=== PATIENT | male | born 2005 | race Caucasian/White ===

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

== ENCOUNTER → 2024-03-27 | Outpatient (CLI) | payer BC, MEDICAID ==
[~2024-03-27] MED LIST changes: +LITH45TASA PO; +METH1TAB13 PO; +OLAN15TA13; +STEL90IN SC; +ZYPR10TA PO
[2024-03-27 14:01] LABS: BASO % 0.5 % (0.0-1.0); EOS # 0.2 10^3/uL (0.0-0.5); EOS % 2.9 % (0.0-3.0); HEMATOCRIT 46.2 % (42.0-52.0); HEMOGLOBIN 15.6 g/dl (13.5-17.5); LYMPH # 1.7 10^3/uL (1.5-5.0); LYMPH % 27.4 % (24.0-44.0); MEAN CORPUSCULAR HEMOGLOBIN 30.9 pg (27.0-33.0); MEAN CORPUSCULAR HGB CONC 33.8 g/dl (32.0-36.5); MEAN CORPUSCULAR VOLUME 91.5 fl (80.0-96.0); MONO # 0.4 10^3/uL (0.0-0.8); MONO % 5.5 % (2.0-8.0); NEUTROPHILS % 63.5 % (36.0-66.0); PLATELET COUNT, AUTOMATED 195 10^3/uL (150-450); RED BLOOD COUNT 5.05 10^6/uL (4.30-6.10); WHITE BLOOD COUNT 6.3 10^3/uL (4.0-10.0)
[2024-03-27 14:26] LABS: ALBUMIN 4.3 G/DL (3.2-5.2); ALKALINE PHOSPHATASE 132 U/L (46-116); ALT/SGPT 23 U/L (7.0-40); AST/SGOT 17 U/L (<34); BILIRUBIN,TOTAL 2.9 MG/DL (0.3-1.2); BLOOD UREA NITROGEN 15 MG/DL (9-23); CALCIUM LEVEL 9.5 MG/DL (8.5-10.1); CARBON DIOXIDE LEVEL 33 MMOL/L (20-31); CHLORIDE LEVEL 107 MMOL/L (98-107); CREATININE FOR GFR 0.84 MG/DL (0.70-1.30); GLUCOSE, FASTING 90 MG/DL (60-100); POTASSIUM SERUM 3.7 MMOL/L (3.5-5.1); SODIUM LEVEL 143 MMOL/L (136-145); TOTAL PROTEIN 6.8 G/DL (5.7-8.2)
[2024-03-27 14:33] LABS: HEPATITIS B SURFACE ANTIBODY NEGATIVE (POSITIVE)
[2024-03-27 14:59] LABS: HIV 1&2 SCREEN NEGATIVE (NEGATIVE)
[2024-03-27 15:07] LABS: HEPATITIS C VIRUS ABY INDEX < 0.02 INDEX (<0.8)
[2024-03-31 12:41] LABS: QuantiFERON-TB Gold Plus NEGATIVE (NEGATIVE)
== END ==
LOC: M PLALAB 12:41 → M LAB 12:41
PROVIDERS: ATTEND Nurse Practitioner Family
DX: L40.0 Psoriasis vulgaris (principal); Z51.81 Encounter for therapeutic drug level monitoring; Z79.899 Other long term (current) drug therapy

== ENCOUNTER 2024-05-05 18:02 | Emergency (ER) | payer BC, MEDICAID ==
[~2024-05-05] VITALS: Ht 180.3 cm; Wt 68.5 kg
[2024-05-05 18:05] VITALS: BP 119/73; O2SAT 98
[2024-05-05] MEDS ORDERED: HOME MED LIST COMPLETE! XX SCH (20:30)
[2024-05-05 21:16] VITALS: TEMP 97.9
== END 2024-05-05 23:56 | disposition home or self-care (01) ==
LOC: M ED 18:02
DX: F84.0 Autistic disorder (principal); Z88.8 Allergy status to other drugs, medicaments and biological substances; Z79.899 Other long term (current) drug therapy

== ENCOUNTER → 2024-06-03 | Outpatient (CLI) | payer BC, MEDICAID ==
[~2024-06-03] MED LIST changes: +LITH450T11 PO; -LITH45TASA PO; -OLAN15TA13; +OLAN15TA69
[2024-06-03 08:43] LABS: BASO % 0.5 % (0.0-1.0); EOS # 0.2 10^3/uL (0.0-0.5); EOS % 3.5 % (0.0-3.0); HEMOGLOBIN 15.8 g/dl (13.5-17.5); LYMPH # 1.9 10^3/uL (1.5-5.0); LYMPH % 29.4 % (24.0-44.0); MEAN CORPUSCULAR HEMOGLOBIN 31.2 pg (27.0-33.0); MEAN CORPUSCULAR HGB CONC 33.6 g/dl (32.0-36.5); MEAN CORPUSCULAR VOLUME 92.7 fl (80.0-96.0); MONO # 0.5 10^3/uL (0.0-0.8); MONO % 7.9 % (2.0-8.0); NEUTROPHILS # 3.9 10^3/uL (1.5-8.5); NEUTROPHILS % 58.2 % (36.0-66.0); PLATELET COUNT, AUTOMATED 225 10^3/uL (150-450); RED BLOOD COUNT 5.07 10^6/uL (4.30-6.10); WHITE BLOOD COUNT 6.6 10^3/uL (4.0-10.0)
[2024-06-03 08:50] LABS: HEMOGLOBIN A1c 4.7 % (4.0-6.0)
[2024-06-03 09:15] LABS: THYROID STIMULATING HORMONE 1.053 uIU/ML (0.48-4.17)
[2024-06-03 09:17] LABS: LITHIUM LEVEL 0.65 MMOL/L (1.0-1.20)
[2024-06-03 09:19] LABS: ALBUMIN 4.1 G/DL (3.2-5.2); ALKALINE PHOSPHATASE 128 U/L (46-116); ALT/SGPT 23 U/L (7.0-40); AST/SGOT 24 U/L (<34); BILIRUBIN,TOTAL 0.8 MG/DL (0.3-1.2); BLOOD UREA NITROGEN 18 MG/DL (9-23); CALCIUM LEVEL 9.9 MG/DL (8.5-10.1); CARBON DIOXIDE LEVEL 30 MMOL/L (20-31); CHLORIDE LEVEL 108 MMOL/L (98-107); CHOLESTEROL LEVEL 167 MG/DL (<200); CHOLESTEROL RISK RATIO 5.62 (<5); CREATININE FOR GFR 0.84 MG/DL (0.70-1.30); GLUCOSE, FASTING 86 MG/DL (60-100); HDL CHOLESTEROL 29.7 MG/DL (>40); NON-HDL-C 137.3 MG/DL; POTASSIUM SERUM 4.4 MMOL/L (3.5-5.1); SODIUM LEVEL 143 MMOL/L (136-145); TOTAL PROTEIN 6.9 G/DL (5.7-8.2); TRIGLYCERIDES LEVEL 666 MG/DL (<150)
== END ==
LOC: M LAB 07:47
PROVIDERS: ATTEND Nurse Practitioner Psychiatric/Mental Health
DX: F84.9 Pervasive developmental disorder, unspecified (principal)

== ENCOUNTER 2024-08-10 22:11 | Inpatient (IN) | payer BC, MEDICAID ==
[~2024-08-10] VITALS: Ht 180.3 cm; Wt 70.1 kg
[2024-08-10 23:03] LABS: HEMATOCRIT 45.6 % (42.0-52.0); HEMOGLOBIN 15.4 g/dl (13.5-17.5); MEAN CORPUSCULAR HGB CONC 33.8 g/dl (32.0-36.5); MEAN CORPUSCULAR VOLUME 91.9 fl (80.0-96.0); PLATELET COUNT, AUTOMATED 225 10^3/uL (150-450); RED BLOOD COUNT 4.96 10^6/uL (4.30-6.10)
[2024-08-10 23:24] LABS: ETHYL ALCOHOL (ETHANOL) < 0.003 % (0.000-0.010)
[2024-08-10 23:25] LABS: SALICYLATE LEVEL < 3.0 MG/DL (<30)
[2024-08-10 23:26] LABS: ALBUMIN 4.3 G/DL (3.2-5.2); ALKALINE PHOSPHATASE 124 U/L (40-129); ALT/SGPT 20 U/L (7.0-40); AST/SGOT 18 U/L (<34); BILIRUBIN,DIRECT 0.4 MG/DL (<0.4); BLOOD UREA NITROGEN 14 MG/DL (9-23); CALCIUM LEVEL 9.9 MG/DL (8.5-10.1); CARBON DIOXIDE LEVEL 28 MMOL/L (20-31); CHLORIDE LEVEL 108 MMOL/L (98-107); CREATININE FOR GFR 0.85 MG/DL (0.70-1.30); GLUCOSE, FASTING 111 MG/DL (60-100); SODIUM LEVEL 144 MMOL/L (136-145); TOTAL PROTEIN 6.8 G/DL (5.7-8.2)
[2024-08-11] MEDS: OLANZapine INTRAMUSCULAR 10MG VIAL IM ONE (00:05)
[2024-08-11] MEDS: LORazepam 2 MG/ML 1ML VIAL IM ONE (00:05)
[2024-08-11] MEDS: diphenhydrAMINE 50MG/ML VIAL IM ONE (00:05)
[2024-08-11 00:42] LABS: AMPHETAMINES LEVEL URINE NEGATIVE (NEGATIVE); BARBITURATES URINE NEGATIVE (NEGATIVE); BENZODIAZEPINES URINE NEGATIVE (NEGATIVE); CANNABINOIDS URINE NEGATIVE (NEGATIVE); COCAINE METABOLITE URINE NEGATIVE (NEGATIVE); METHADONE URINE NEGATIVE (NEGATIVE); OPIATES URINE NEGATIVE (NEGATIVE); PHENCYCLIDINE URINE NEGATIVE (NEGATIVE)
[2024-08-11] MEDS ORDERED: IBUPROFEN 400MG TAB PO PRN (14:40)
[2024-08-11] MEDS ORDERED: ACETAMINOPHEN 325 MG TAB PO PRN (14:40)
[2024-08-11] MEDS ORDERED: MAALOX 30 ML SUSP *UDC PO PRN (14:40)
[2024-08-11] MEDS ORDERED: MOM 30ML SUSPENSION UDC PO PRN (14:40)
[2024-08-11] MEDS ORDERED: traZODone 50 MG TAB PO PRN (14:40)
[2024-08-11] MEDS ORDERED: LITH450T11 PO (15:57)
[2024-08-11] MEDS ORDERED: GUAN1TAB17 PO (16:00)
[2024-08-11] MEDS ORDERED: LURA20TA PO (16:00)
[2024-08-11] MEDS ORDERED: HOME MED LIST COMPLETE! XX SCH (16:05)
[2024-08-11] MEDS: LITHIUM CARBONATE 300 MG CAP PO ONE (17:09)
[2024-08-11 18:02] VITALS: BP 121/56; TEMP 97.8; O2SAT 100
[2024-08-12 06:41] VITALS: BP 123/63; TEMP 98.3; O2SAT 95
[2024-08-12] MEDS: LORazepam 1 MG TAB PO ONE (09:55)
[2024-08-12] MEDS: diphenhydrAMINE 50MG CAP PO ONE (10:00)
[2024-08-12] MEDS: OLANZapine INTRAMUSCULAR 10MG VIAL IM ONE (10:15)
[2024-08-12] MEDS: diphenhydrAMINE 50MG/ML VIAL IM STA (10:16)
[2024-08-12] MEDS: LORazepam 2 MG/ML 1ML VIAL IM STA (10:16)
[2024-08-12] MEDS: OLANZapine INTRAMUSCULAR 10MG VIAL IM STA (10:21)
[2024-08-12] MEDS: chlorproMAZINE INJ 50MG/2ML AMP IM ONE (11:03)
[2024-08-12 12:21] VITALS: BP 114/61; TEMP 97.4; O2SAT 96
[2024-08-12] MEDS: LURASIDONE 20 MG TAB (LATUDA) PO SCH (12:34)
[2024-08-12] MEDS: LITHIUM CARBONATE 450 MG **CR** TAB PO SCH (12:35)
[2024-08-12 14:50] VITALS: BP 121/66; TEMP 97.3; O2SAT 97
[2024-08-13] MEDS: LITHIUM CARBONATE 450 MG **CR** TAB PO SCH (05:19)
[2024-08-13 15:50] VITALS: BP 142/70; TEMP 98.2; O2SAT 98
[2024-08-13] MEDS: diphenhydrAMINE 25MG CAP PO PRN (20:33)
[2024-08-13] MEDS: OLANZapine ORAL DISINTEGRATING TAB 5MG PO PRN (20:33)
[2024-08-14] MEDS: OLANZapine 10 MG TAB PO SCH (08:25)
[2024-08-14 08:55] LABS: FREE T4 1.04 NG/DL (0.83-1.43)
[2024-08-14 08:56] LABS: FREE T3 3.5 PG/ML (3.0-4.7); THYROID STIMULATING HORMONE 0.608 uIU/ML (0.48-4.17)
[2024-08-14 14:49] VITALS: BP 122/72; TEMP 98.2; O2SAT 99
[2024-08-15 15:16] VITALS: BP 117/69; TEMP 97.7; O2SAT 98
[2024-08-16 06:34] VITALS: BP 88/51; TEMP 97.9; O2SAT 97
[2024-08-16 15:43] VITALS: BP 118/71; TEMP 97.4; O2SAT 98
[2024-08-17 15:44] VITALS: BP 123/82; TEMP 98.1; O2SAT 98
[2024-08-17] MEDS: diphenhydrAMINE 50MG/ML VIAL IM STA (23:31)
[2024-08-17] MEDS: HALOPERIDOL LACTATE 5MG/ML VIAL IM STA (23:32)
[2024-08-17] MEDS: LORazepam 2 MG/ML 1ML VIAL IM STA (23:33)
[2024-08-17 23:35] VITALS: BP 132/64; TEMP 98.8; O2SAT 97
[2024-08-17 23:50] VITALS: BP 123/72; TEMP 98.8; O2SAT 98
[2024-08-18] VITALS: BP 124/72; TEMP 97.9; O2SAT 97
[2024-08-18 01:50] VITALS: TEMP 98.1
[2024-08-18] MEDS ORDERED: LITH450T11 PO (11:50)
[2024-08-18] MEDS ORDERED: OLAN1TAB20 PO (11:50)
[2024-08-18] MEDS ORDERED: OLAN5ZYD PO (11:50)
== END 2024-08-18 15:32 | disposition home or self-care (01) | DRG 757 ==
LOC: M ED 22:11 → M ED INP 08-11 14:39 → M PSY 08-11 17:17
PROVIDERS: ADMIT Psychiatry & Neurology Psychiatry; ATTEND Psychiatry & Neurology Psychiatry
DX: F84.0 Autistic disorder (principal); Z78.1 Physical restraint status; R45.851 Suicidal ideations; F91.3 Oppositional defiant disorder; F90.9 Attention-deficit hyperactivity disorder, unspecified type; R45.1 Restlessness and agitation; R45.6 Violent behavior; Z79.899 Other long term (current) drug therapy; Z88.8 Allergy status to other drugs, medicaments and biological substances